=== PATIENT | female | born 1970 | race Caucasian/White ===

== ENCOUNTER 2024-06-23 06:53 | Day surgery (SDC) | payer OTHER ==
[~2024-06-23] VITALS: Ht 157.5 cm; Wt 63.2 kg
[~2024-06-23 06:53] MED LIST: CeFAZolin 2 GM/DEXTROSE 50 ML IV ONE; MetroNIDAZOLE 500 MG/NACL 100 ML IV ONE; RINGERS SOLUTION,LACTATED 1,000 ML IV ONE; TIRZ5PEN SQ
[2024-06-23] MEDS: RINGERS SOLUTION,LACTATED 1,000 ML IV ONE (07:36)
[2024-06-23] MEDS ORDERED: CeFAZolin 2 GM/DEXTROSE 50 ML IV ONE (09:00)
[2024-06-23] MEDS ORDERED: MetroNIDAZOLE 500 MG/NACL 100 ML IV ONE (09:00)
[2024-06-23] MEDS: ETHYL ALCOHOL 62% ANTISEPTIC NASAL SANITIZER 0.6 ML AMPUL NASAL ONE (09:00)
[2024-06-23] MEDS: CHLORHEXIDINE GLUCONATE 2% TOWELETTE [2'S/6'S] TP ONE (09:01)
[2024-06-23] MEDS ORDERED: HYDROmorphone HCL 2 MG/ML SYRINGE IVP PRN (11:15)
[2024-06-23] MEDS ORDERED: FentaNYL CITRATE PF 100 MCG/2 ML VIAL IVP PRN (11:15)
[2024-06-23] MEDS ORDERED: MEPERIDINE-PF 25 MG/ML VIAL IVP PRN (11:15)
[2024-06-23] MEDS ORDERED: ROCURONIUM BROMIDE 10 MG/ML 5 ML VIAL IVP ONE (12:00)
[2024-06-23] MEDS ORDERED: MIDAZOLAM HCL 2 MG/2 ML VIAL IVP ONE (12:00)
[2024-06-23] MEDS ORDERED: PROPOFOL 1% 20 ML VIAL IVP ONE (12:00)
[2024-06-23] MEDS ORDERED: DEXAMETHASONE SOD PHOS 4 MG/ML VIAL IVP ONE (12:00)
[2024-06-23] MEDS ORDERED: KETOROLAC TROMETHAMINE 60 MG/2 ML VIAL IM ONE (12:00)
[2024-06-23] MEDS ORDERED: SUGAMMADEX SODIUM 200 MG/2 ML VIAL IVP ONE (12:00)
[2024-06-23] MEDS ORDERED: FentaNYL CITRATE PF 100 MCG/2 ML VIAL IVP ONE (12:00)
[2024-06-23] MEDS ORDERED: LIDOCAINE/PF 2% 5 ML VIAL IM ONE ×2 (12:00)
[2024-06-23] MEDS ORDERED: ACETAMINOPHEN/ISO-OSM 1000 MG/100 ML BOTTLE IV ONE (12:00)
[2024-06-23] MEDS ORDERED: ONDANSETRON HCL 4 MG/2 ML VIAL IVP ONE (12:00)
[2024-06-23] MEDS ORDERED: OXYGEN THERAPY IH SCH (20:00)
== END 2024-06-23 11:25 | disposition home or self-care (01) ==
LOC: SURGERY 06:53
PROVIDERS: ATTEND Surgery
DX: K43.6 Other and unspecified ventral hernia with obstruction, without gangrene (principal); E78.00 Pure hypercholesterolemia, unspecified; Z79.899 Other long term (current) drug therapy; Z98.51 Tubal ligation status; Z98.890 Other specified postprocedural states
CPT/HCPCS: 49592; 88302; J2704; J1100; J3010; J1885; J3490 ×4; J2250; J2405; J7120; J0131; J0690

== ENCOUNTER 2024-06-30 06:27 | Day surgery (SDC) | payer OTHER ==
[~2024-06-30 06:27] MED LIST changes: -CeFAZolin 2 GM/DEXTROSE 50 ML IV ONE; +GLYCOPYRROLATE 0.2 MG/ML VIAL ONE; +LIDOCAINE/PF 2% 5 ML VIAL ONE; -MetroNIDAZOLE 500 MG/NACL 100 ML IV ONE; +PROPOFOL 1% 20 ML VIAL IVP ONE; -RINGERS SOLUTION,LACTATED 1,000 ML IV ONE; +SODIUM CHLORIDE 0.9% 1,000 ML ONE
[2024-06-30] MEDS: SODIUM CHLORIDE 0.9% 1,000 ML IV ONE (07:09)
[2024-06-30] MEDS ORDERED: OXYGEN THERAPY IH SCH (20:00)
== END 2024-06-30 10:25 | disposition home or self-care (01) ==
LOC: SURGERY 06:27
PROVIDERS: ATTEND Specialist
DX: Z12.11 Encounter for screening for malignant neoplasm of colon (principal); K63.89 Other specified diseases of intestine; E78.00 Pure hypercholesterolemia, unspecified; Z79.899 Other long term (current) drug therapy; Z98.51 Tubal ligation status; Z98.890 Other specified postprocedural states; Z83.3 Family history of diabetes mellitus
CPT/HCPCS: 45378; J2704; J3490 ×2; J7030